=== PATIENT | male | born 1945 | race Caucasian/White ===

== ENCOUNTER 2023-03-28 19:29 | Emergency (ER) | payer MEDICARE, BC ==
[2023-03-28 19:42] VITALS: RESP 18; TEMP 98
[2023-03-28 19:45] LABS: Glucose,Whole Blood 154 mg/dL (70-110)
--- NOTE | 2023-03-28 19:48 | ED ---
Altered Mental Status HPI - General Chief Complaint: Altered Mental Status Stated Complaint: Weakness, AMS Time Seen by Provider: 03/28/23 19:47 Source: family, EMS, RN notes reviewed, old records reviewed, Caregiver Mode of arrival: EMS Limitations: altered mental status - History of Present Illness Initial Comments: This is a 77-year-old male to the emergency department today for evaluation today. Patient presents today for evaluation of altered mental status. Patient has a persistent worsening or mental state for some time now. Patient was rec ently seen and evaluated for possibility of dementia but had no improvement with treatment. Patient seemed to be significantly worsening. Family presents today for evaluation. Patient is unable to give history or speak at his baseline. Patient has no complaints but does seem to be unable to answer questions and give complaints MD Complaint: altered mental status, confusion, decreased responsiveness -: week(s) Severity: severe Consistency of Symptoms: getting worse, constant Associated Symptoms: weakness, difficulty walking - Related Data Home Medications Medication Instructions Recorded Confirmed Atorvastatin [Lipitor] 10 mg PO HS 03/28/23 03/28/23 Dapagliflozin/Metformin HCl 1 tab PO BID-W/MEALS 03/28/23 03/28/23 [Xigduo Xr 5 mg-1,000 mg Tablet] Donepezil [Aricept] 10 mg PO HS 03/28/23 03/28/23 Enalapril [Vasotec] 10 mg PO DAILY 03/28/23 03/28/23 Allergies Allergy/AdvReac Type Severity Reaction Status Date / Time No Known Allergies Allergy Verified 03/28/23 20:45 Review of Systems ROS Statement: Those systems with pertinent positive or pertinent negative responses have been documented in the HPI. ROS Other: All systems not noted in ROS Statement are negative. Past Medical History Past Medical History: CVA/TIA, Hypertension Additional Past Medical History / Comment(s): type two diabetes History of Any Multi-Drug Resistant Organisms: None Reported Past Surgical History: Cholecystectomy, Orthopedic Surgery Smoking Status: Current every day smoker Past Alcohol Use History: Rare Past Drug Use History: None Reported General Exam Limitations: altered mental status General appearance: alert, lethargic, in distress Head exam: Present: atraumatic, normocephalic, normal inspection Eye exam: Present: normal appearance, PERRL, EOMI. Absent: scleral icterus, conjunctival injection, periorbital swelling ENT exam: Present: normal exam, mucous membranes moist Neck exam: Present: normal inspection. Absent: tenderness, meningismus, lymphadenopathy Respiratory exam: Present: normal lung sounds bilaterally. Absent: respiratory distress, wheezes, rales, rhonchi, stridor Cardiovascular Exam: Present: regular rate, normal rhythm, normal heart sounds. Absent: systolic murmur, diastolic murmur, rubs, gallop, clicks GI/Abdominal exam: Present: soft, normal bowel sounds. Absent: distended, tenderness, guarding, rebound, rigid Extremities exam: Present: normal inspection, full ROM, normal capillary refill. Absent: tenderness, pedal edema, joint swelling, calf tenderness Back exam: Present: normal inspection Neurological exam: Present: alert, oriented X3, CN II-XII intact Psychiatric exam: Present: normal affect, normal mood Skin exam: Present: warm, dry, intact, normal color. Absent: rash Course Vital Signs 03/28/23 03/28/23 03/28/23 19:31 22:00 22:30 Temperature 98.0 F Pulse Rate 79 70 77 Respiratory 18 18 18 Rate Blood Pressure 179/69 177/73 167/72 O2 Sat by Pulse 97 98 100 Oximetry 03/28/23 03/28/23 08 23:00 23:30 00:00 Temperature Pulse Rate 66 65 85 Respiratory 18 18 18 Rate Blood Pressure 146/96 160/72 175/69 O2 Sat by Pulse 99 98 98 Oximetry - Reevaluation(s) Reevaluation #1: 03/28/23 23:10 Medical records reviewed Reevaluation #2: 03/28/23 23:10 No change in symptoms here in the ER Reevaluation #3: 03/28/23 23:10 Patient family informed of results, questions answered Reevaluation #4: 03/28/23 23:10 Was pt. sent in by a medical professional or institution (, PA, CLIENT TECHNOLOGIES SPECIALIST, urgent care, hospital, or correction...) When possible be specific @ -no Did you speak to anyone other than the patient for history (EMS, parent, family, police, friend...)? What history was obtained from this source @ -Past family at bedside also made aware of patient's condition and significant illness here in the ER, prognosis Did you review nursing and triage notes (agree or disagree)? Why? @ -agree Are old charts reviewed (outside hosp., previous admission, EMS record, old EKG, old radiological studies, urgent care reports/EKG's, correction records)? Report findings @ -yes Differential Diagnosis (chest pain, altered mental status, abdominal pain women, abdominal pain men, vaginal bleeding, weakness, fever, dyspnea, syncope, headache, dizziness, GI bleed, back pain, seizure, CVA, palpatations, mental health, musculoskeletal)? @ -prior EKG interpreted by me (3pts min.). @ -yes X-rays interpreted by me (1pt min.). @ -yes CT interpreted by me (1pt min.). @ -yes U/S interpreted by me (1pt. min.). @ -no What testing was considered but not performed or refused? (CT, X-rays, U/S, labs )? Why? @ -none What meds were considered but not given or refused? Why? @ -none Did you discuss the management of the patient with other professionals (professionals i.e. , PA, CLIENT TECHNOLOGIES SPECIALIST, lab, RT, psych nurse, healthcare social worker, sorter pricer, teacher, property portfolio officer, upper caser)? Give summary @ -no Was smoking cessation discussed for >3mins.? @ -no Was critical care preformed (if so, how long)? @ -no Were there social determinants of health that impacted care today? How? (Homelessness, low income, unemployed, alcoholism, drug addiction, transportation, low edu. Level, literacy, decrease access to med. care, residential, rehab)? @ -none Was there de-escalation of care discussed even if they declined (Discuss DNR or withdrawal of care, Hospice)? DNR status @ -no What co-morbidities impacted this encounter? (DM, HTN, Smoking, COPD, CAD, Cancer, CVA, ARF, Chemo, Hep., AIDS, mental health diagnosis, sleep apnea, morbid obesity)? @ -none Was patient admitted / discharged? Hospital course, mention meds given and route, prescriptions, significant lab abnormalities, going to OR and other pertinent info. @ - 77 male to the emergency department for evaluation of deteriorating mental status and cognitive function. Patient does have recent diagnosis of onset of dementia due to the symptoms. Patient presents today for no improvement of symptoms despite treatment. 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 Patient be transferred to care of neurosurgery and oncology Transferred to [facility] Admitted Undiagnosed new problem with uncertain prognosis? @ -no Drug Therapy requiring intensive monitoring for toxicity (Heparin, Nitro, Insulin, Cardizem)? @ -no Were any procedures done? @ -no Diagnosis/symptom? @ -Brain mass, cancer, midline shift with edema Acute, or Chronic, or Acute on Chronic? @ -Acute Uncomplicated (without systemic symptoms) or Complicated (systemic symptoms)? @ -Complicated Side effects of treatment? @ -no Exacerbation, Progression, or Severe Exacerbation? @ -exacerbation Poses a threat to life or bodily function? How? (Chest pain, [place], [place], pneumonia, PE, COPD, DKA, ARF, appy, cholecystitis, CVA, Diverticulitis, Homicidal, Suicidal, threat to staff... and all critical care pts) @ -yes multiple comorbidities from tumor mass with shift Reevaluation #5: 03/28/23 23:10 Differential Altered Mental Status: Hypoglycemia, DKA, hypercapnia, ETOH, overdose, CO poisoning, trauma, myxedema coma, HTN encephalopathy, infection, encephalitis, psychosis, intercranial hemorrhage, hepatic encephalopathy, meningitis, CVA, this is not meant to be an all-inclusive list - Consultations Consultation #1: Spoke with [facility] Medical Decision Making - Medical Decision Making 77 male to the emergency department for evaluation of deteriorating mental status and cognitive function. Patient does have recent diagnosis of onset of dementia due to the symptoms. Patient presents today for no improvement of symptoms despite treatment. 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 Patient be transferred to care of neurosurgery and o ncology - Lab Data Result diagrams: 03/28/23 20:53 03/28/23 20:53 Lab Results 03/28/23 03/28/23 03/28/23 Range/Units 19:43 20:53 20:53 WBC 12.8 H (3.8-10.6) k/uL RBC 5.76 (4.30-5.90) m/uL Hgb 17.0 (13.0-17.5) gm/dL Hct 49.7 (39.0-53.0) % MCV 86.3 (80.0-100.0) fL MCH 29.6 (25.0-35.0) pg MCHC 34.3 (31.0-37.0) g/dL RDW 13.7 (11.5-15.5) % Plt Count 117 L (150-450) k/uL MPV 7.9 Neutrophils % 87 % Lymphocytes % 6 % Monocytes % 5 % Eosinophils % 1 % Basophils % 0 % Neutrophils # 11.2 H (1.3-7.7) k/uL Lymphocytes # 0.7 L (1.0-4.8) k/uL Monocytes # 0.6 (0-1.0) k/uL Eosinophils # 0.1 (0-0.7) k/uL Basophils # 0.0 (0-0.2) k/uL PT 10.5 (9.0-12.0) sec INR 1.0 (<1.2) APTT 24.6 (22.0-30.0) sec Sodium (137-145) mmol/L Potassium (3.5-5.1) mmol/L Chloride (98-107) mmol/L Carbon Dioxide (22-30) mmol/L Anion Gap mmol/L BUN (9-20) mg/dL Creatinine (0.66-1.25) mg/dL Est GFR (CKD-EPI)AfAm (>60 ml/min/1.73 sqM) Est GFR (CKD-EPI)NonAf (>60 ml/min/1.73 sqM) Glucose (74-99) mg/dL POC Glucose (mg/dL) 154 H (70-110) mg/dL POC Glu Cancer Registry Manager Juan Ruffin Plasma Lactic Acid El (0.7-2.0) mmol/L Calcium (8.4-10.2) mg/dL Phosphorus (2.5-4.5) mg/dL Magnesium (1.6-2.3) mg/dL Total Bilirubin (0.2-1.3) mg/dL AST (17-59) U/L ALT (4-49) U/L Alkaline Phosphatase (38-126) U/L Troponin I (0.000-0.034) ng/mL NT-Pro-B Natriuret Pep pg/mL Total Protein (6.3-8.2) g/dL Albumin (3.5-5.0) g/dL 03/28/23 03/28/2323 Range/Units 20:53 20:53 20:53 WBC (3.8-10.6) k/uL RBC (4.30-5.90) m/uL Hgb (13.0-17.5) gm/dL Hct (39.0-53.0) % MCV (80.0-100.0) fL MCH (25.0-35.0) pg MCHC (31.0-37.0) g/dL RDW (11.5-15.5) % Plt Count (150-450) k/uL MPV Neutrophils % % Lymphocytes % % Monocytes % % Eosinophils % % Basophils % % Neutrophils # (1.3-7.7) k/uL Lymphocytes # (1.0-4.8) k/uL Monocytes # (0-1.0) k/uL Eosinophils # (0-0.7) k/uL Basophils # (0-0.2) k/uL PT (9.0-12.0) sec INR (<1.2) APTT (22.0-30.0) sec Sodium 136 L (137-145) mmol/L Potassium 3.8 (3.5-5.1) mmol/L Chloride 101 (98-107) mmol/L Carbon Dioxide 22 (22-30) mmol/L Anion Gap 13 mmol/L BUN 22 H (9-20) mg/dL Creatinine 0.98 (0.66-1.25) mg/dL Est GFR (CKD-EPI)AfAm 87 (>60 ml/min/1.73 sqM) Est GFR (CKD-EPI)NonAf 75 (>60 ml/min/1.73 sqM) Glucose 134 H (74-99) mg/dL POC Glucose (mg/dL) (70-110) mg/dL POC Glu Cancer Registry Manager ID Plasma Lactic Acid El 1.3 (0.7-2.0) mmol/L Calcium 9.0 (8.4-10.2) mg/dL Phosphorus 3.9 (2.5-4.5) mg/dL Magnesium 2.0 (1.6-2.3) mg/dL Total Bilirubin 1.2 (0.2-1.3) mg/dL AST 23 (17-59) U/L ALT 17 (4-49) U/L Alkaline Phosphatase 92 (38-126) U/L Troponin I <0.012 (0.000-0.034) ng/mL NT-Pro-B Natriuret Pep 125 pg/mL Total Protein 6.2 L (6.3-8.2) g/dL Albumin 3.8 (3.5-5.0) g/dL - EKG Data -: EKG Interpreted by Me (EKG is sinus 73 WI 144 QRS 92 QTC 411) - Radiology Data Radiology results: report reviewed (CT brain CT angios of the head neck is positive for frontal lobe mass with edema, 6 mm of shift), image reviewed Critical Care Time Critical Care Time: Yes Total Critical Care Time: 31 Disposition Clinical Impression: Altered mental status, Delirium due to general medical condition, Left frontal lobe mass, Brain edema Disposition: OTHER INSTITUTION NOT DEFINED Condition: Serious Is patient prescribed a controlled substance at d/c from ED?: No Referrals: Reagan Plascencia DO [Primary Care Provider] - 1-2 days Time of Disposition: 23:00 - Out of Hospital Transfer - Req. Specs Out of Hospital Transfer - Requested Specifics: Other Emergency Center ([facility])
[2023-03-28] MEDS ORDERED: SODIUM CHLORIDE 0.9% 1,000 ML IV STA (20:41)
[2023-03-28 21:14] LABS: Basophils % (A) 0 %; Eosinophils # (A) 0.1 k/uL (0-0.7); Eosinophils % (A) 1 %; HCT 49.7 % (39.0-53.0); Lymphocytes # (A) 0.7 k/uL (1.0-4.8); Lymphocytes % (A) 6 %; MCH 29.6 pg (25.0-35.0); MCHC 34.3 g/dL (31.0-37.0); MCV 86.3 fL (80.0-100.0); Mean Platelet Volume 7.9; Monocytes # (A) 0.6 k/uL (0-1.0); Monocytes % (A) 5 %; Neutrophils # (A) 11.2 k/uL (1.3-7.7); Neutrophils % (A) 87 %; Platelet Count 117 k/uL (150-450); RBC 5.76 m/uL (4.30-5.90); RDW 13.7 % (11.5-15.5); WBC 12.8 k/uL (3.8-10.6)
[2023-03-28 21:15] LABS: ALT 17 U/L (4-49); AST 23 U/L (17-59); African American GFR (CKD) 87 (>60 ml/min/1.73 sqM); Albumin 3.8 g/dL (3.5-5.0); Alkaline Phosphatase 92 U/L (38-126); Anion Gap 13 mmol/L; Blood Urea Nitrogen 22 mg/dL (9-20); Carbon Dioxide 22 mmol/L (22-30); Chloride 101 mmol/L (98-107); Glucose 134 mg/dL (74-99); Non-African American GFR(CKD) 75 (>60 ml/min/1.73 sqM); Phosphorus 3.9 mg/dL (2.5-4.5); Potassium 3.8 mmol/L (3.5-5.1); Sodium 136 mmol/L (137-145); Total Bilirubin 1.2 mg/dL (0.2-1.3); Total Protein 6.2 g/dL (6.3-8.2)
[2023-03-28 21:19] LABS: Partial Thromboplastin Time 24.6 sec (22.0-30.0); Prothrombin Time 10.5 sec (9.0-12.0)
[2023-03-28 21:23] LABS: NT-Pro-B-Type Natriuretic Pept 125 pg/mL
--- NOTE | 2023-03-28 22:08 | CT ---
EXAMINATION TYPE: CT brain wo con DATE OF EXAM: 03/28/2023 HISTORY: AMS. Recently diagnosed with dementia. Hx of stroke 18mo ago. CT DLP: 1548.4 mGycm. Automated Exposure Control for Dose Reduction was Utilized. TECHNIQUE: CT scan of the head is performed without contrast. COMPARISON: None. FINDINGS: There is diffuse low-attenuation, consistent with edema, throughout most of the left frontal lobe, wi th associated sulcal effacement, moderate mass effect upon the anterior horn and anterior body of the left lateral ventricle, and 6 mm rightward shift of midline structures. The basal cisterns are unrem arkable. There are no other similar lesions. There is no intracranial hemorrhage. There is no focal encephalomalacia. IMPRESSION: Diffuse edema throughout the left frontal lobe with 6 mm rightward shift of midline structures; recom mend further characterization using MRI with contrast.
--- NOTE | 2023-03-28 22:24 | CT ---
EXAMINATION TYPE: CT angio head neck DATE OF EXAM: 03/28/2023 HISTORY: AMS. Recently diagnosed with dementia. Hx of stroke 18mo ago. COMPARISON: CT brain without contrast 8 06/10/2020 9:[address] DLP: 545.8 mGycm. Automated Exposure Control for Dose Reduction was Utilized. TECHNIQUE: CTA scan of the head and neck is performed with IV Contrast, patient injected with 130cc mL of Isovue 370, axial images are obtained, coronal and sagittal reformatted images are reviewed. 3D reconstructed images are created on an independent workstation and reviewed. FINDINGS: CTA Neck: The bilateral carotid arteries, bilateral ICA, and bilateral ECA are patent and there are n o hemodynamically-significant stenoses. The bilateral vertebral arteries are patent and there are no hemodynamically significant stenoses. Venous structures are unremarkable. CTA Head: There is a 4.8 cm AP by 3.6 x 3.6 cm left frontal lobe mass which is hypodense centrally an d shows a thick moderately contrast-enhancing rim. There is surrounding vasogenic edema throughout mo st of the left frontal lobe, which shifts the anterior midline structures rightward by 6 mm and which exerts inferomedial mass effect upon the frontal horn and body of the left lateral ventricle. Basal cisterns are intact. There are no other similar lesions The bilateral ICA and remainder of the anterior circulation are widely patent and without hemodynamic ally significant stenoses, dissection, or aneurysm. The bilateral vertebral arteries and remainder of the circulation are widely patent and without hemodynamically significant stenoses, dissection, or a neurysm. Dural venous sinuses are unremarkable. IMPRESSION: Left frontal lobe mass with differential primarily including neoplasm (secondary and primary) and inf ection; recommend characterization using MRI with contrast. Associated vasogenic edema with rightward shift of structures. * NASCET criteria was used in interpretation of this exam?
[2023-03-28] MEDS ORDERED: DEXAMETHASONE SOD PHOSPHATE 10 MG/ML 1 ML VIAL IVP STA (22:31)
[2023-03-29 00:30] VITALS: BP 175/69; PULSE 85
== END 2023-03-29 00:10 | disposition other institution (70) ==
LOC: EC 19:29
DX: R41.82 Altered mental status, unspecified (principal); G93.89 Other specified disorders of brain; G93.6 Cerebral edema; E11.9 Type 2 diabetes mellitus without complications; I10 Essential (primary) hypertension; F17.200 Nicotine dependence, unspecified, uncomplicated; Z79.84 Long term (current) use of oral hypoglycemic drugs
CPT/HCPCS: 36415; 93005; 83880; 80053; 83605; 83735; 84100; 84484; 85025; 85610; 85730; 70496; 70450; 70498; 99291; 96374; 96361; J1100; Q9967

== ENCOUNTER → 2023-04-24 | Outpatient (CLI) | payer MEDICARE, BC ==
--- NOTE | 2023-04-24 19:54 | MR ---
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 COMPARISON: CT brain 03/28/2023 TECHNIQUE: Multi planar, multi sequence imaging was performed through the brain including: T1, T2, In version recovery, susceptibility weighted imaging and gradient echo imaging and Diffusion weighted im aging. The patient was then given intravenous contrast and multi planar, T1 fat-saturation images wer e obtained. IV Contrast: 7.5 cc Gadavist FINDINGS: Posttreatment changes left frontal lobe with craniotomy. There is some enhancing tissue within the mcmanus rgical bed left in the frontal lobe as well as other areas. These masses are heterogenous. Examples i nclude: * Small focus of enhancement along the left lateral aspect of the lateral ventricle measuring 5 mm. Series 801 image 115. * More superiorly in the left frontal lobe along the falx measuring 4.9 x 2.1 cm which extends down towards into the corpus callosum body. Series 801 image 139. * Corpus callosum body lesion small focus in the left basal ganglia peripheral enhancement measuring 5 mm. Measuring up to 13 x 13 mm on the left. Series 802 image 23 and on the right measuring 9 mm a nnular focus measuring 6 mm series 2 image 27. * More laterally in the left frontal lobe measuring 9 x 8 mm 801 image 145 No evidence for restricted diffusion to suggest acute/subacute CVA. Susceptibility weighted imaging d emonstrates microhemorrhage blooming artifact within these lesions compatible with microhemorrhage. Cerebral atrophy with proportional dilation of ventricles. Intracranial arterial flow voids are maintained. Midline structures show no abnormality. Scattered fo ci of high T2 signal intensity are seen within the periventricular white matter. The bone marrow signal is within normal limits. Paranasal sinuses and mastoid air cells: No significant paranasal sinus disease. Visualized orbits: Orbital contents are intact. IMPRESSION: 1. Multiple enhancing masses within the bilateral frontal lobes compatible with neoplastic process. One of lesions has postsurgical craniotomy overlying the brain tissue. 2. Nonspecific white matter changes which could represent cysts chronic small vessel ischemic diseas e.
== END | disposition home or self-care (01) ==
LOC: RADMRIMAIN 16:29
PROVIDERS: ATTEND Radiology Radiation Oncology
DX: C71.1 Malignant neoplasm of frontal lobe (principal); G93.89 Other specified disorders of brain
CPT/HCPCS: 70553; A9585